=== PATIENT | female | born 1960 | race African-American/Black ===

== ENCOUNTER 2024-04-24 10:39 | Emergency (ER) | payer MEDICAID, OTHER ==
[~2024-04-24] VITALS: Ht 175.3 cm; Wt 80.0 kg
[~2024-04-24 10:39] MED LIST: IBUP-2030
[2024-04-24 10:40] VITALS: BP 117/83; PULSE 87; RESP 18; TEMP 36.3; O2SAT 96
[2024-04-24] MEDS ORDERED: ACET-2708 MT (13:54)
== END 2024-04-24 13:09 | disposition home or self-care (01) ==
LOC: ER 12:09
DX: S09.8XXA Other specified injuries of head, initial encounter (principal); E78.00 Pure hypercholesterolemia, unspecified; I10 Essential (primary) hypertension; Z88.6 Allergy status to analgesic agent; W13.2XXA Fall from, out of or through roof, initial encounter; Y93.89 Activity, other specified; Y92.89 Other specified places as the place of occurrence of the external cause; Y99.8 Other external cause status
CPT/HCPCS: 99284